=== PATIENT | female | born 1985 | race Caucasian/White ===

== ENCOUNTER 2019-09-28 06:34 | Emergency (ER) | payer OTHER ==
[2019-09-28 08:32] LABS: RAPID STREP SCREEN Negative (Negative)
[2019-09-28] MEDS ORDERED: CHERRY SYRUP 10 ML UDC PO ONE (08:45)
[2019-09-28] MEDS ORDERED: DEXAMETHASONE 10 MG/ML VIAL PO STA (08:45)
--- NOTE | 2019-09-28 08:45 | ED Physician Documentation ---
PD HPI HEENT - Stated complaint Stated Complaint: FLU LIKE SX - Chief complaint Chief Complaint: General - History obtained from History obtained from: Patient, Family - History of Present Illness Timing - onset: How many days ago (4) Timing - duration: Days (4) Timing - details: Gradual onset, Still present Location: Throat Improves: Medication Worsens: Sw[place]lowing Associated symptoms: Congestion, Cough Similar symptoms before: Has not had sx before Recently seen: Not recently seen - Additional information Additional information: 34-year-old female has been across on a [place] trip with her children and her has developed a sore throat. Her son is been treated for strep 1 week ago her daughter is in here this morning with strep positive on our swab and she has developed body aches and pains low-grade fever and sore throat. Review of Systems Constitutional: reports: Fever Eyes: denies: Decreased vision Ears: denies: Ear pain Nose: reports: Rhinorrhea / runny nose, Congestion Throat: reports: Sore throat Cardiac: denies: Chest pain / pressure, Palpitations Respiratory: reports: Cough. denies: Dyspnea GI: denies: Vomiting PD PAST MEDICAL HISTORY - Past Medical History Past Medical History: No - Past Surgical History Past Surgical History: No - Present Medications Home Medications: Ambulatory Orders Medication Instructions Recorded Confirmed Amoxicillin 875 mg PO BID #20 tablet 09/28/19 - Allergies Allergies/Adverse Reactions: Allergies Allergy/AdvReac Type Severity Reaction Status Date / Time No Known Drug Allergies Allergy Verified 09/28/19 06:49 - Social History Does the pt smoke?: No Smoking Status: Never smoker Does the pt drink ETOH?: No Does the pt have substance abuse?: No - Immunizations Immunizations are current?: No - POLST Patient has POLST: No PD ED PE NORMAL - Vitals Vital signs reviewed: Yes (normal ) - General General: No acute distress, Well developed/nourished - HEENT HEENT: Atraumatic, PERRL, EOMI, Ears normal, Other (mild inflamation to the right tonsil ) - Neck Neck: Supple, no meningeal sign, No bony TTP - Cardiac Cardiac: RRR, No murmur - Respiratory Respiratory: No respiratory distress, Clear bilaterally - Abdomen Abdomen: Soft, Non tender - Back Back: No CVA TTP, No spinal TTP - Derm Derm: Normal color, Warm and dry, No rash - Extremities Extremities: No deformity, No edema - Neuro Neuro: Alert and oriented X 3, 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, No motor deficit, No sensory deficit, Normal speech Eye Opening: Spontaneous Motor: Obeys Commands Verbal: Oriented GCS Score: 15 - Psych Psych: Normal mood, Normal affect Results - Vitals Vitals: Vital Signs - 24 hr 09/28/19 09/28/19 06:46 07:53 Temperature 36.8 C 36.7 C Heart Rate 100 85 Respiratory 16 18 Rate Blood Pressure 125/75 114/88 H O2 Saturation 99 100 Oxygen O2 Source Room air - Labs Labs: Laboratory Tests 09/28/19 09/28/19 07:55 08:10 Influenza A (Rapid) Negative Influenza B (Rapid) Negative Group A Strep Rapid Negative PD MEDICAL DECISION MAKING - ED course Complexity details: considered differential, d/w patient, d/w family ED course: 34-year-old female with exposure to strep has a sore throat. Her strep screen is negative. We will start her on some amoxicillin and we have given her a dose of dexamethasone. Departure - Departure Disposition: 01 Home, Self Care Clinical Impression: Strep throat exposure Condition: Stable Instructions: ED Strep Pharyngitis Poss Follow-Up: MICHELLE Lopez [Provider Group] Prescriptions: Amoxicillin 875 mg PO BID #20 tablet
[2019-09-28 09:00] VITALS: BP 117/95
== END 2019-09-28 09:00 | disposition home or self-care (01) ==
LOC: ED 06:34
DX: J02.9 Acute pharyngitis, unspecified (principal); M79.10 Myalgia, unspecified site
CPT/HCPCS: 87070; 87275; 87276; 87430; 99283; 99284; A9270